=== PATIENT | female | born 1965 | race African-American/Black ===

== ENCOUNTER 2017-06-26 15:24 | Emergency (ER) | payer SELFPAY ==
[~2017-06-26] VITALS: Ht 167.6 cm; Wt 77.3 kg
[~2017-06-26 15:24] MED LIST: LORTAB 5/500 501 TAB PO; MOTRIN800 MG PO; NO HOME MEDICATIONS; NORCO 325 MG-7.1 TAB PO; PREDNISONE20 MG PO; [UNRECOGNIZED DRUG - OTHER] TP
[2017-06-26 16:40] VITALS: BP 160/72; PULSE 65; TEMP 97.7
== END 2017-06-26 16:38 | disposition home or self-care (01) ==
LOC: COL.ER 15:24
DX: S90.32XA Contusion of left foot, initial encounter (principal); Z88.2 Allergy status to sulfonamides; Z79.52 Long term (current) use of systemic steroids; W22.8XXA Striking against or struck by other objects, initial encounter; Y92.009 Unspecified place in unspecified non-institutional (private) residence as the place of occurrence of the external cause

== ENCOUNTER 2021-12-16 14:42 | Emergency (ER) | payer SELFPAY ==
[~2021-12-16] VITALS: Ht 167.6 cm; Wt 77.3 kg
[2021-12-16 14:46] VITALS: TEMP 98.2
[2021-12-16 15:30] LABS: BASO % 0.3 % (0.0-2.0); EOS # 0.1 K/mm3 (0.0-0.7); GRAN # 3.2 K/mm3 (1.4-6.5); GRAN % 52.9 % (42.2-75.2); HEMATOCRIT 39.2 % (37.0-47.0); HEMOGLOBIN 13.2 g/dl (12.5-16.0); LYMPH # 2.3 K/mm3 (1.2-3.4); LYMPH % 37.7 % (20.0-51.0); MEAN CELL VOLUME 90 fl (80.0-100.0); MEAN CORPUSCULAR HEMOGLOBIN 30 pg (27-31); MEAN CORPUSCULAR HGB CONC 34 g/dl (33.0-37.0); MEAN PLATELET VOLUME 11.1 fl (7.4-10.4); MONO # 0.4 K/mm3 (0.1-0.6); MONO % 6.6 % (1.7-9.3); PLATELET COUNT 230 K/mm3 (130-400); RED BLOOD COUNT 4.38 M/mm3 (4.10-5.30); REDCELL DISTRIBUTION WIDTH-CV 11.8 % (11.5-14.5)
[2021-12-16 15:31] LABS: COLLECTION METHOD CLEAN CATCH
[2021-12-16 15:38] LABS: PH 5.5 (5.0-8.5); URINE APPEARANCE Cloudy (CLEAR/HAZY); URINE BLOOD TRACE-LYSED (NEGATIVE); URINE COLOR Yellow (YELLOW); URINE GLUCOSE Negative (NEGATIVE); URINE KETONE Negative (NEGATIVE); URINE NITRATE Negative (NEGATIVE); URINE PROTEIN(semi-quant) TRACE (NEGATIVE); URINE UROBILINOGEN 0.2 E.U/dL (0.2-1.0)
[2021-12-16 15:45] LABS: SQUAMOUS EPITHELIAL 0-2 /hpf (0-10); URINE BACTERIA None Seen /hpf (NONE SEEN)
[2021-12-16 15:49] LABS: ALBUMIN 3.6 gm/dL (3.5-5.0); BILIRUBIN,TOTAL 0.5 mg/dL (0.2-1.2); C-REACTIVE PROTEIN 1.02 mg/dL (0.00-0.50); CALCIUM 9.1 mg/dL (8.4-10.2); CREATININE, serum 0.89 mg/dL (0.57-1.11); POTASSIUM 4.2 mmol/L (3.5-4.5); TOTAL PROTEIN 7.4 gm/dL (6.2-8.1)
[2021-12-16] MEDS ORDERED: CEFTIN500 MG PO (16:17)
[2021-12-16 16:46] VITALS: BP 127/88; PULSE 77
== END 2021-12-16 16:47 | disposition home or self-care (01) ==
LOC: COL.ER 14:42
PROVIDERS: Nurse Practitioner
DX: N39.0 Urinary tract infection, site not specified (principal); Z88.2 Allergy status to sulfonamides
CPT/HCPCS: J0696; J1885

== ENCOUNTER 2023-10-04 12:49 | Emergency (ER) | payer SELFPAY ==
[~2023-10-04] VITALS: Ht 167.6 cm; Wt 80.0 kg
[~2023-10-04 12:49] MED LIST changes: +AMOXICILLIN 8751 TAB PO; +CEFTIN500 MG PO; +SENOKOT S 50 MG1 TAB PO
[2023-10-04 12:54] VITALS: TEMP 98.5
[2023-10-04 14:00] VITALS: O2SAT 98
[2023-10-04 14:23] LABS: BASO # 0.1 K/mm3 (0.0-0.2); BASO % 0.7 % (0.0-2.0); EOS # 0.2 K/mm3 (0.0-0.7); EOS % 2.1 % (0.0-4.0); GRAN % 65.7 % (42.2-75.2); HEMATOCRIT 43.1 % (37.0-47.0); HEMOGLOBIN 14.3 g/dl (12.5-16.0); LYMPH # 2.1 K/mm3 (1.2-3.4); MEAN CELL VOLUME 93 fl (80.0-100.0); MEAN CORPUSCULAR HEMOGLOBIN 31 pg (27-31); MEAN CORPUSCULAR HGB CONC 33 g/dl (33.0-37.0); MEAN PLATELET VOLUME 11.8 fl (7.4-10.4); MONO # 0.3 K/mm3 (0.1-0.6); MONO % 4.2 % (1.7-9.3); PLATELET COUNT 219 K/mm3 (130-400); RED BLOOD COUNT 4.66 M/mm3 (4.10-5.30); REDCELL DISTRIBUTION WIDTH-CV 12.3 % (11.5-14.5)
[2023-10-04 15:09] LABS: ALANINE AMINOTRANSFERASE 24 U/L (0-55); ALBUMIN 3.6 g/dL (3.5-5.0); ALKALINE PHOSPHATASE 67 U/L (40-150); ANION GAP 9 mmol/L (7-16); AST,SGOT 19 U/L (5-34); BILIRUBIN,TOTAL 0.8 mg/dL (0.2-1.2); BLOOD UREA NITROGEN 13 mg/dL (10-20); CALCIUM 9.3 mg/dL (8.4-10.2); CHLORIDE 107 mEq/L (98-107); CREATININE, serum 0.76 mg/dL (0.57-1.11); GLUCOSE 78 mg/dL (70-99); POTASSIUM 3.8 mEq/L (3.5-4.5); SODIUM 139 mEq/L (136-145); TOTAL PROTEIN 6.9 g/dl (6.2-8.1)
[2023-10-04 15:18] LABS: TROPONIN-I < 0.010 ng/mL (0.00-0.033)
[2023-10-04 15:48] VITALS: BP 189/88; PULSE 68
== END 2023-10-04 15:58 | disposition home or self-care (01) ==
LOC: COL.ER 12:49
PROVIDERS: Emergency Medicine
DX: J39.9 Disease of upper respiratory tract, unspecified (principal); R07.89 Other chest pain